=== PATIENT | female | born 1990 | race Caucasian/White ===

== ENCOUNTER 2022-01-31 08:37 | Emergency (ER) | payer BC, SELFPAY ==
[2022-01-31 08:49] VITALS: BP 139/85; PULSE 88; RESP 16; TEMP 37.1; O2SAT 100
[2022-01-31] MEDS: KETOROLAC (*BKC) 60 MG/2 ML VIAL IM (09:04)
[2022-01-31 09:07] VITALS: BP 129/89; PULSE 87; RESP 18; O2SAT 99
[2022-01-31 09:08] LABS: Add Urine Microscopic? NO; Appearance Urine Clear (Clear); Bilirubin Urine Negative (Negative); Blood Urine Negative (Negative); Color Urine Yellow (Yellow); Glucose Urine UA Negative (Negative); Ketones Urine Negative (Negative); Leukocyte Esterase Ur Negative LEU/UL (Negative); Nitrate Urine Negative (Negative); Protein Urine Negative (Negative); Urobilinogen Urine 0.2 mg/dL (<2.0)
--- NOTE | 2022-01-31 09:31 | ED.BACK ---
HPI - Back Pain/Injury General Chief Complaint: Back Pain/Injury Stated Complaint: Possible Kidney Stone Time Seen by Provider: 01/31/22 08:43 History of Present Illness HPI Narrative: Patient is a 32-year-old female who presents ER with low back pain. Ongoing throughout the evening. Had taken some warm baths to relax. Has not taken any oral medication. No fevers chills or sweats. No chest pain or chest pressure. No urinary frequency urgency or dysuria. Has had an episode of nausea. No lower extremity numbness or tingling. Has had some radiation into the thighs bilaterally. Related Data Allergies Allergy/AdvReac Type Severity Reaction Status Date / Time adhesive tape Allergy Hives Verified 01/31/22 09:02 erythromycin base Allergy Hives Verified 01/31/22 09:02 Penicillins Allergy Hives Verified 01/31/22 09:02 Review of Systems Review of Systems: All systems reviewed & are unremarkable except as noted in HPI and below Constitutional: Constitutional: Denies chills and Denies fever(s) ENT: Denies nasal congestion Gastrointestinal: Gastrointestinal: Denies abdominal pain, Reports nausea and Denies vomiting Genitourinary: Genitourinary: Denies hematuria, Denies nocturia, Denies dysuria and Denies flank pain Musculoskeletal: Musculoskeletal: Reports back pain, Denies arthralgias and Denies joint swelling Exam Narrative: GENERAL: Well-appearing, well-nourished, and in no acute distress. HEAD: Normocephalic, atraumatic. ABDOMEN: Soft, nontender, nondistended. EXTREMITIES: Normal range of motion. No edema. Back: No reproducible tenderness of the midline T/L-spine. There is paraspinal muscular discomfort bilaterally at the level of L2-L3. SKIN: Warm, dry, no rash. NEURO: Alert and oriented x3. PSYCH: Normal mood and affect. Course Course Emergency Course: Pain improved with Toradol. No blood in urine. [place] to be muscle strain. Discharge home. Vital Signs Vital signs: Vital Signs Temperature 98.8 F 01/31/22 08:49 Pulse Rate 88 01/31/22 08:49 Respiratory Rate 16 01/31/22 08:49 Blood Pressure 139/85 01/31/22 08:49 Pulse Oximetry 100 01/31/22 08:49 Oxygen Delivery Room Air 01/31/22 08:49 Temperature 98.8 F 01/31/22 08:49 Pulse Rate 87 01/31/22 09:07 Respiratory Rate 18 01/31/22 09:07 Blood Pressure 129/89 01/31/22 09:07 Pulse Oximetry 99 01/31/22 09:07 Oxygen Delivery Room Air 01/31/22 08:49 MDM - Back Pain/Injury Lab Data Labs: Lab Results 01/31/22 Range/Units 08:56 Urine Color Yellow (Yellow) Urine Appearance Clear (Clear) Urine pH 7.0 (5.0-9.0) Ur Specific [place] 1.010 (1.001-1.035) Urine Protein Negative (Negative) mg/dL Urine Glucose (UA) Negative (Negative) mg/dL Urine Ketones Negative (Negative) mg/dL Ur Blood (Man) Negative (Negative) Urine Nitrate Negative (Negative) Urine Bilirubin Negative (Negative) Urine Urobilinogen 0.2 (<2.0) mg/dL Leukocyte Esterase Rfl Negative (Negative) FILI/UL Discharge Plan Discharge Clinical Impression: Strain of lumbar region Patient Disposition: Home, Self-Care Condition: Stable Instructions: Acute Low Back Pain (ED) Additional Instructions: Return to the ER if you have increased pain in your back, you develop lower extremity weakness/numbness/paralysis, you have numbness or tingling in your private parts, or you are unable to control your ability to urinate/stool. Prescriptions: New naproxen 375 mg tablet 375 mg PO BID Qty: 14 0RF Follow-up/Referrals: Molina Mireles MD [Physician] - 1 Week PHYSICIAN,[employer] [Primary Care Provider] -
[2022-01-31 10:27] VITALS: BP 126/89; PULSE 87; RESP 18; O2SAT 99
== END 2022-01-31 10:29 | disposition home or self-care (01) ==
PROVIDERS: Emergency Provider Emergency Medicine
DX: S39.012A Strain of muscle, fascia and tendon of lower back, initial encounter (principal); X58.XXXA Exposure to other specified factors, initial encounter
CPT/HCPCS: 81003; 96372; 99283; J1885

== ENCOUNTER 2023-05-23 18:08 | Emergency (ER) | payer BC, SELFPAY ==
--- NOTE | ~2023-05-23 | XR_ITS ---
EXAMINATION: XR chest 2V DATE: 05/23/2023 18:53 INDICATION: Intermittent chest pain. TECHNIQUE: Frontal and lateral views of the chest were obtained. COMPARISON: None. FINDINGS: There is no pneumonia, pleural effusion, or pneumothorax. The heart size is normal. IMPRESSION: 1. No acute cardiopulmonary disease. Reviewed, dictated and finalized at location E. [employer]
[2023-05-23 18:26] VITALS: BP 142/91; PULSE 85; RESP 16; TEMP 36.4; O2SAT 99
[2023-05-23 18:29] LABS: Basophils Percent Auto 0.5 % (0.2-1.2); Eosinophils Absolute Auto 0.1 K/mm3 (0-0.3); Eosinophils Percent Auto 1.6 % (0-4.4); Hematocrit 42.1 % (37.0-47.0); Hemoglobin 14.1 g/dL (12.0-15.0); Immature Granulocyte Absolute 0.02 K/mm3 (0.00-0.031); Immature Granulocyte Percent A 0.3 % (0-0.5); Lymphocytes Absolute Auto 1.89 K/mm3 (0.9-3.2); Lymphocytes Percent Auto 25.3 % (18.3-44.2); Mean Corpuscular HGB Conc 33.5 g/dl (32-36); Mean Corpuscular Hemoglobin 29.3 pg (26-34); Mean Corpuscular Volume 87.5 fl (80-100); Mean Platelet Volume 10.2 fl (7.4-10.4); Monocytes Absolute Auto 0.4 K/mm3 (0.1-0.6); Monocytes Percent Auto 4.7 % (2.6-8.5); Neutrophils Absolute Auto 5.1 K/mm3 (1.3-6.7); Neutrophils Percent Auto 67.6 % (45.5-73.1); Platelet Count Result 290 k/mm3 (150-375); Red Blood Count 4.81 M/mm3 (4.2-5.4); Red Cell Distribution Width 11.8 % (11.5-14.5); White Blood Count 7.5 K/mm3 (4.5-10.0)
[2023-05-23 18:40] LABS: Prothrombin Time 13.1 Seconds (11.1-14.7)
[2023-05-23 18:46] LABS: Alanine Aminotransferase 21 U/L (6-35); Albumin Level 4.1 g/dL (3.5-5.1); Alkaline Phosphatase 74 U/L (38-126); Anion Gap 9 mmol/L (8-16); Aspartate Amino Transferase 20 U/L (14-36); Bilirubin,Total 0.5 mg/dL (0.2-1.3); Blood Urea Nitrogen 13 mg/dL (7-17); Carbon Dioxide 25 mmol/L (22-30); Chloride 102 mmol/L (98-107); Estimated CRCL calculation 68 ml/min; Estimated Glomerular Filt Rate > 60; Glucose 105 mg/dL (65-110); Lipase 65 U/L (23-300); Potassium 3.9 mmol/L (3.4-5.0); Sodium 136 mmol/L (137-145)
[2023-05-23 18:56] LABS: Troponin I < 0.012 ng/mL (0.000-0.034)
[2023-05-23 20:22] VITALS: BP 127/88; PULSE 72; RESP 12; O2SAT 99
[2023-05-23 20:24] VITALS: O2SAT 100
--- NOTE | 2023-05-23 21:07 | ED.CHESTPAIN ---
HPI - Chest Pain General Chief Complaint: Chest Pain Stated Complaint: chest tightness, HTN Time Seen by Provider: 05/23/23 19:26 History of Present Illness HPI narrative: Patient is a 33-year-old female with a history of ADHD, anxiety presenting with chest pain. Patient states that for the last week or so she has had persistent chest tightness associated with a sensation of needing to cough. States that whenever she coughs it does help a little bit with the chest tightness. States that she is currently on Ritalin and she used to be on Vyvanse. She discontinue the Vyvanse due to blood pressure concerns. She has anxiety regarding her blood pressure and has a blood pressure cuff at home. She took it today and was in the 140s over 100 so she became concerned and came in for evaluation. States that she feels that her anxiety has been less controlled lately. No fevers or chills, shortness of breath, abdominal pain, nausea vomiting, diarrhea, leg swelling, recent travel or immobilization. Related Data Allergies Allergy/AdvReac Type Severity Reaction Status Date / Time adhesive tape Allergy Hives Verified 05/23/23 19:56 erythromycin base Allergy Hives Verified 05/23/23 19:56 Penicillins Allergy Hives Verified 05/23/23 19:56 Review of Systems Review of Systems: All systems reviewed & are unremarkable except as noted in HPI and below Exam Narrative: GENERAL: Well-appearing, no acute distress, pleasant and cooperative HEAD: Normocephalic, atraumatic. EYES: PERRLA and EOMI. ENT: grossly unremarkable NECK: Supple. CHEST: Clear to auscultation. No respiratory distress. HEART: Regular rate and rhythm. ABDOMEN: Soft, nontender, nondistended. EXTREMITIES: Normal range of motion. No edema. SKIN: Warm, dry, no rash. NEURO: No focal deficits. Alert and oriented x3. PSYCH: Normal mood and affect. Course Vital Signs Vital signs: Vital Signs Temperature 97.6 F 05/23/23 18:26 Pulse Rate 85 05/23/23 18:26 Respiratory Rate 16 05/23/23 18:26 Blood Pressure 142/91 H 05/23/23 18:26 Pulse Oximetry 99 05/23/23 18:26 Oxygen Delivery Room Air 05/23/23 18:26 Temperature 97.6 F 05/23/23 18:26 Pulse Rate 72 05/23/23 20:22 Respiratory Rate 16 05/23/23 21:30 Blood Pressure 127/88 05/23/23 20:22 Pulse Oximetry 100 05/23/23 20:24 Oxygen Delivery Room Air 05/23/23 20:24 MDM - Chest Pain MDM Narrative Medical decision making narrative: 33-year-old female presenting with chest tightness and anxiety. Patient is mildly hypertensive here, otherwise vitals are within normal limits. Exam remarkable for the above. EKG per my interpretation shows normal sinus rhythm, normal axis and intervals, no ST elevations or depressions. Blood work is unremarkable. Troponin is undetectable. Chest x-ray without acute abnormalities. Patient is safe for outpatient management. Discussed blood pressure monitoring and follow-up with PCP. Appropriate return precautions given. Patient is agreeable with this plan. Discharged in stable condition. Differential Diagnosis Differential diagnosis: Likely atypical chest pain, costochondritis and chest pain Medical Records Data Attestation: I reviewed the patient's medical records. Lab Data Attestation: I reviewed the patient's lab results. 05/23/23 18:21 05/23/23 18:21 Labs: Lab Results 05/23/23 Range/Units 18:21 WBC 7.5 (4.5-10.0) K/mm3 RBC 4.81 (4.2-5.4) M/mm3 Hgb 14.1 (12.0-15.0) g/dL Hct 42.1 (37.0-47.0) % MCV 87.5 (80-100) fl MCH 29.3 (26-34) pg MCHC 33.5 (32-36) g/dl RDW 11.8 (11.5-14.5) % Plt Count 290 (150-375) k/mm3 MPV 10.2 (7.4-10.4) fl Immature Gran % (Auto) 0.3 (0-0.5) % Neut % (Auto) 67.6 (45.5-73.1) % Lymph % (Auto) 25.3 (18.3-44.2) % [place] % (Auto) 4.7 (2.6-8.5) % Eos % (Auto) 1.6 (0-4.4) % Baso % (Auto) 0.5 (0.2-1.2) % Lymph # (Auto) 1.89 (0.9-3.2) K/mm3
[2023-05-23 21:30] VITALS: RESP 16
== END 2023-05-23 21:30 | disposition home or self-care (01) ==
PROVIDERS: Emergency Medicine; Emergency Provider Emergency Medicine; PCP Nurse Practitioner Family
DX: R07.89 Other chest pain (principal); F41.9 Anxiety disorder, unspecified
CPT/HCPCS: 36415; 71046; 80053; 83690; 84484; 85025; 85610; 85730; 99284